=== PATIENT | female | born 1955 | race Caucasian/White ===

== ENCOUNTER → 2016-09-14 | Outpatient (CLI) | payer BC ==
--- NOTE | 2016-09-14 16:00 | MAMMOGRAPHY REPORT ---
BILATERAL DIGITAL SCREENING MAMMOGRAM WITH CAD: 09/14/2016 CLINICAL HISTORY: Routine screening. Patient has no complaints. TECHNIQUE: Bilateral CC and MLO views were obtained. Current study was also evaluated with a Compute r Aided Detection (CAD) system. COMPARISON: Comparison is made to exams dated: 09/13/2015 mammogram, 09/11/2014 mammogram, 07/12/2013 m ammogram, 07/05/2012 mammogram, 07/06/2011 mammogram, and 07/01/2011 mammogram - [facility] enter. BREAST COMPOSITION: There are scattered areas of fibroglandular density in both breasts. FINDINGS: No suspicious mass, architectural distortion or cluster of microcalcifications is seen. IMPRESSION: ACR BI-RADS CATEGORY 1: NEGATIVE There is no mammographic evidence of malignancy. A 1 year screening mammogram is recommended. The pa tient will receive written notification of the results. Approximately 10% of breast cancers are not detected with mammography. A negative mammographic report should not delay biopsy if a clinically suggestive mass is present. Kamini Roberto M.D. ay/:09/14/2016 15:28:26 [employer] Specialist: Susan CORCORAN(R)(M)(BD), [facility] letter sent: Normal 1/2 BI-RADS Code: ACR BI-RADS Category 1: Negative
== END | disposition home or self-care (01) ==
LOC: C.MAMM 15:08
PROVIDERS: ATTEND Obstetrics & Gynecology
DX: Z12.31 Encounter for screening mammogram for malignant neoplasm of breast (principal)

== ENCOUNTER → 2017-02-10 | Outpatient (CLI) | payer BC ==
[2017-02-10 10:12] LABS: BLOOD UREA NITROGEN 22 mg/dl (7-18); BUN/CREATININE RATIO 27.9 (10-20); CARBON DIOXIDE 27 mmol/L (21-32); CHLORIDE 104 mmol/L (98-107); CHOLESTEROL 278 mg/dl (0-200); GLUCOSE 89 mg/dl (70-99); POTASSIUM 4.3 mmol/L (3.5-5.1); SODIUM 137 mmol/L (136-145); TRIGLYCERIDES 68 mg/dl (0-150); VERY LOW DENSITY LIPOPROT CALC 14 mg/dl
[2017-02-10 10:26] LABS: HDL CHOLESTEROL 92 mg/dl; LDL CHOLESTEROL CALCULATED 172 mg/dl
== END | disposition home or self-care (01) ==
LOC: C.LAB 07:03
PROVIDERS: ATTEND Internal Medicine
DX: I10 Essential (primary) hypertension (principal); E78.00 Pure hypercholesterolemia, unspecified; E03.9 Hypothyroidism, unspecified

== ENCOUNTER 2019-04-21 14:15 | Observation (INO) ==
[2019-04-21] MEDS ORDERED: ONDANSETRON INJ 2 MG/ML 2 ML VIAL ONE ×2 (15:33→16:06)
[2019-04-21 15:39] LABS: Basophils # (auto) 0.03 K/uL (0-0.2); Basophils % (auto) 0.4 %; Eosinophils # (auto) 0.07 K/uL (0-0.5); Hematocrit (blood only) 41.9 % (37-47); Hemoglobin 14.5 g/dL (12.0-16.0); Immature Granulocytes # (auto) 0.01 K/uL (0.00-0.02); Immature Granulocytes % (auto) 0.1 %; Lymphocytes % (auto) 36.4 %; Mean Corpuscular Hemoglobin 29.8 pg (25-34); Mean Corpuscular Hgb Conc 34.6 g/dL (32-36); Mean Platelet Volume 9.5 fL (7.4-10.4); Monocytes % (auto) 5.6 %; Neutrophils # (auto) 4.04 K/uL (1.4-6.5); Neutrophils % (auto) 56.5 %; Platelet Count 299 K/uL (130-400); RDW Coefficient of Variation 12.2 % (11.5-14.5); RDW Standard Deviation 38.4 fL (36.4-46.3); Red Blood Count 4.87 M/uL (4.2-5.4); White Blood Count 7.15 K/uL (4.8-10.8)
[2019-04-21 16:03] LABS: Alanine Aminotransferase 26 U/L (12-78); Albumin Level 3.8 gm/dl (3.4-5.0); Aspartate Aminotransferase 18 U/L (15-37); Blood Urea Nitrogen 24 mg/dl (7-18); Calcium 9.1 mg/dl (8.5-10.1); Carbon Dioxide 29 mmol/L (21-32); Chloride 108 mmol/L (98-107); Est GFR (African American) 51.8; Est GFR (Non-African American) 44.7; Glucose 121 mg/dl (70-99); Potassium 3.5 mmol/L (3.5-5.1); Sodium 141 mmol/L (136-145)
[2019-04-21 16:06] LABS: Albumin Globulin Ratio 1.1 (0.9-2); Alkaline Phosphatase 60 U/L (45-117); Bilirubin,Total 0.9 mg/dl (0.2-1); Globulin 3.5 gm/dl (2.5-4.0); Total Protein 7.3 gm/dl (6.4-8.2)
[2019-04-21] MEDS ORDERED: DIAZEPAM 5 MG/ML INJ 10ML VIAL IV STA ×2 (16:10→18:42)
[2019-04-21] MEDS ORDERED: SODIUM CHLORIDE 0.9% 1000ML 500 ML IV ONE (16:10)
--- NOTE | 2019-04-21 16:56 | CT Scan Report ---
CT SCAN OF THE BRAIN WITHOUT IV CONTRAST CLINICAL HISTORY: Dizziness. COMPARISON STUDY: No priors. TECHNIQUE: Unenhanced axial CT scan of the brain is performed from the vertex to the skull base. A d ose lowering technique was utilized adhering to the principles of ALARA. CT DOSE: 638.56 mGycm FINDINGS: Brain parenchyma: The brain parenchyma is normal in appearance. There is no hemorrhage, mass effect, or evidence of acute territorial ischemia by CT criteria. Seaman-white matter differentiation is preser esteban. No extra-axial fluid collection is seen. Ventricles, sulci, cisterns: Normal in configuration. Intracranial vasculature: The visualized intracranial vasculature at the skull base is normal in appe arance. Calvarium: Unremarkable. 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 Sinuses and mastoids: The visualized paranasal sinuses are clear. The mastoid air cells are well pneu matized. Orbits: The bony orbits are grossly intact. IMPRESSION: No acute intracranial abnormality. ACT 112: Negative or not required by law. Electronically signed by: Uday Ram M.D. 04/21/2019 4:55 PM
--- NOTE | 2019-04-21 17:29 | Electrocardiogram Report ---
Test Reason : Blood Pressure : / mmHG Vent. Rate : 076 BPM Atrial Rate : 076 BPM P-R Int : 166 ms QRS Dur : 138 ms QT Int : 420 ms P-R-T Axes : 022 041 032 degrees QTc Int : 472 ms Normal sinus rhythm Right bundle branch block Abnormal ECG No previous ECGs available Confirmed by William Arenas ([id number]) on 04/21/2019 5:29:17 PM Referred By: ED Confirmed By:Jairon Arenas
[2019-04-21] MEDS ORDERED: DiphenhydrAMINE 12.5 MG in SYRINGE 0 ML IV STA (18:42)
[2019-04-21] MEDS ORDERED: METOCLOPRAMIDE HCL INJ 5 MG/ML 2 ML VIAL IV ONE (18:42)
[2019-04-21] MEDS ORDERED: DiphenhydrAMINE HCL 50 MG/ML VIAL ONE (19:00)
--- NOTE | 2019-04-21 20:37 | History & Physical Report ---
Date of Service April 21, 2019 Assessment & Plan (1) Vertigo: Brandy is a 64-year-old female with a past medical history of hyperlipidemia, hypothyroidism, and hypertension who presents with 1 day of acute vertigo and nausea/vomiting which did not improve with diphenhydramine or Zofran. Vertigo Suspect 2/2 labyrinthitis, but given persistent symptoms and new murmur recommend evaluation for central causes No leukocytosis Trace anisocoria, otherwise no focal neurologic deficits CThead negative MRIB pending Meclizine as needed Zofran every 6 hours as needed for nausea Systolic murmur, new to patient She experienced an episode of nipple/left anterior chest pain several hours ago which did not radiate but may have been associated with diaphoresis. EKG shows normal sinus rhythm with right bundle branch block Recommend TTE Troponin series Prerenal azotemia Creatinine increased from baseline less than 1-1.26 with BUN/creatinine ratio of 19 IVFM 80 cc/hr overnight while nausea continues BMP every morning Hypertension Continue lisinopril 2.5 mg p.o. daily Hyperlipidemia Continue Crestor 10 mg every afternoon Hypothyroidism Continue Synthroid 125 mcg p.o. daily Diet: Regular DVT prophylaxis: Enoxaparin 40 mg subcu 2/2 difficulty ambulating 2/2 vertigo CODE STATUS: Full code (2) Nausea: (3) Essential hypertension: (4) Hypercholesterolemia: (5) Hypothyroidism: History of Present Illness Primary Care Provider: Gabriel Rodriguez MD Brandy is a 64-year-old female with a past medical history of hyperlipidemia, hypertension, and hypothyroidism who presented to the emergency department with 24 hours of vertigo. She reports her symptoms started yesterday in the evening when she experienced a sudden episode of dizziness with the room spinning around her. She did not feel syncopal or presyncopal. The episode passed after about 2 minutes and she went to bed. She did not have dizziness symptoms when she woke up the next morning. She came to work at [employer] at around 11:30 in the morning and was doing well until 2 PM when she had a second episode of sudden dizziness. Her blood pressure at the time was 161/100. She also developed nausea and dry heaving intermittently. Her dizziness has persisted relatively nonstop throughout this afternoon and is worse with sitting up or turning her head. She had one episode of chills an hour ago. She endorses thigh ache secondary to a workout, but not any worse than normal. She denies joint pain, diarrhea, constipation, abdominal pain, and new cold-like symptoms. She endorses that she had a cold 7 to 10 days ago with an occasional residual lingering nonproductive cough but that that has mostly resolved and she does not have any current flulike symptoms. She denies night sweats. She has no prior history of the symptoms. She has never had BPPV or vertigo before. She has not noticed any vision change or hearing change. No ear pain. No ear discharge. She was noted on exam to have systolic murmur, she denies previous history of murmur. She endorses that she had a short episode of pain behind her left nipple/chest which she thinks may have been associated with diaphoresis but w hich was not associated with shortness of breath or exercise. She has not had chest pain previously. She has had costochondritis, which she reports felt very different. She is not having any chest pain, diaphoresis, or shortness of breath at time of HPI. 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 Medical history: Hypertension, hypothyroidism, hyperlipidemia Surgical history: 3 total sections. Carpal tunnel release. Left third finger trigger release. Medications: Synthroid, lisinopril, vitamin E. Allergies: She reports she is sensitive to Aleve which raises her blood pressure, no other medication allergies. Social history: She lives at her home in the [place] with her Jose Guadalupe Tijerina. She has no current or former tobacco use. Drinks a glass of wine socially intermittently, no prior problems related to alcohol. Denies recreational drug use. FHx: Mother: Uterine cancer Father: Lung cancer, , heavy smoker Sister: Hypothyroidism CODE STATUS: Full code. Confirmed with patient. If she were unable to make decisions she would want her Jose Guadalupe Tijerina to make decisions for her. Allergies Allergy/AdvReac Type Severity Reaction Status Date / Time naproxen AdvReac Intermediate INCREASES Verified 04/21/19 17:27 BLOOD PRESSURE Home Medications Home Medications Medication Instructions Recorded Confirmed Type omega-3 fatty acids 1,000 mg 1,000 mg PO DAILY 03/10/19 04/21/19 History capsule levothyroxine 125 mcg PO DAILY 04/21/19 04/21/19 History lisinopril 2.5 mg PO DAILY 04/21/19 04/21/19 History rosuvastatin [Crestor] 10 mg PO QPM 04/21/19 04/21/19 History Past Med/Surg History Medical History Essential hypertension (Acute) Health care maintenance Hypercholesterolemia (Acute) Hypothyroidism (Acute) Surgical History History of carpal tunnel release History of section History of eye surgery History of tonsillectomy History of tooth extraction History of tubal ligation Family History Father Lung cancer Myocardial infarction Mother Uterine cancer Other Allergic rhinitis Asthma Social History Preferred Language: Kinyarwanda Communication Ability: Effective Visual Impairment: No Limitations Hearing Ability: Normal Jacket Preparer Required: No Beliefs That Will Affect Care: None marital status: Current Living Situation: Spouse current occupational status: employed Other Information That Helps Us Care for You: No Feels Safe at Home: Yes Safety Concerns: Feels Safe At This Time Smoking Status: Never smoker Hx Alcohol Use: Yes Alcohol Intake Frequency Comment: social Hx Substance Use: No Childhood Exposure to Second-Hand Smoke: Yes Dental Care, Regularly: Yes Physical Activity Frequency: 5-6 Times per Week Physical Activity Frequency Comment: regularly Seatbelt Use: always Sunscreen Use: Yes Review of Systems Review of Systems: Constitutional: Denies fever, malaise, weight change. Endorses 1 episode of chills Eyes: Denies double vision, vision change, eye pain ENT: Denies ear pain, sore throat, sinus pain Cardiovascular: Endorses L nipple/?chest pain/ denies chest pressure, palpitations, extremity swelling Respiratory: Denies shortness of breath, sputum production, difficulty breathing. Lingering cough as noted in HPI. Gastrointestinal: Denies abdominal pain, vomiting, constipation, diarrhea. Endorses nausea, dry heaving. Genitourinary: Denies pain with urination, urinary urgency, urinary frequency Musculoskeletal: Denies weakness, joint aches/pain. Endorses muscle aches from exercise, no new or unusual muscle aches or myalgias. Integumentary:Denies rash, lesions, bruising Neurological: Denies headache, numbness, tingling, focal weakness Physical Exam Physical Exam: General: A&Ox3. Appears fatigued. NAD. Cooperative. HEENT: Atraumatic, normocephalic. No nasolabial fold flattening or increased tone/asymmetry. Exterior nasal anatomy normal, atraumatic. External ear anatomy normal, atraumatic bilaterally. TM without perforation, exudate, effusion bilaterally. No mastoid tenderness bilaterally. No anterior/posterior cervical adenopathy or clavicular adenopathy. Pulm: CTAB A&P. -wheezes, -rales, -rhonchi. Symmetrical chest rise. No increase work of breathing. No respiratory distress. Cardiac: v/vi systolic murmur best appreciated at right upper sternal border with radiation to the right carotid. No rubs, gallops. No carotid bruits. Radial pulses intact and symmetrical. Abdominal: Nontender, nondistended, soft. BS present. CN II: Visual bentley are full to confrontation. Left pupil 1 mm larger than the right at rest, pupils respond equally to light and accommodation. Visual bentley intact without deficits. Visual acuity grossly intact. CN III, IV, : At primary gaze, there is no eye deviation. Extraocular movements intact without vertical or horizontal nystagmus. CN V: Facial sensation is intact to soft touch in all 3 divisions bilaterally. CN VII: No facial asymmetry, full strength to eyebrow raise, smile, eye close, and cheek puff. CN VII: Hearing is grossly intact. CN IX, X: Palate elevates symmetrically. Phonation is normal without dysarthria. CN XI: Head turning and shoulder shrug are intact CN XII: Tongue protrudes midline. Reflexes: Patellar, Achilles, Brachial DTR 2+ Bilaterally Sensory: Light touch, pinprick intact in fingertips and toes without deficit or asymmetry. 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 There is no dysmetria on [id number] and [id number]. Results & Data Vital Signs (Past 12 Hours) Vital Signs Temp Pulse Pulse Resp BP BP Pulse Ox 04/21/19 19:00 84 20 132/82 97 04/21/19 17:54 70 20 141/86 H 94 04/21/19 16:02 61 16 149/62 H 91 04/21/19 15:38 67 14 172/90 H 98 04/21/19 14:18 36.7 C 88 20 164/89 H 96 Supervising Physician Co-Signing Physician Notes Patient was seen and examined by me personally. I reviewed the chart, the orders and discussed the case in detail with Dr. Philippe Nevarez MD . I read this H&P and agree with its contents to entirety. Resident Activity Tracking Resident Involvement: Resident Care Provided Care Provided: Adult Hospital Medicine
[2019-04-21 21:41] LABS: Appearance Urine Clear (Clear); Bilirubin Urine Negative (Negative); Blood Urine Negative (Negative); Color Urine Yellow; Glucose Urine UA Negative (Negative); Ketones Urine Trace (Negative); Leukocyte Esterase Urine Negative (Negative); Nitrite Urine Negative (Negative); Protein Urine Negative (Negative); Urobilinogen Urine Negative (Negative)
[2019-04-21] MEDS ORDERED: ONDANSETRON INJ 2 MG/ML 2 ML VIAL IV PRN (22:52)
[2019-04-21] MEDS ORDERED: ENOXAPARIN INJ 40 MG/0.4 ML SYR SQ SCH (23:15)
[2019-04-21] MEDS: MECLIZINE HCL 25 MG TAB PO PRN (23:39)
[2019-04-21] MEDS: SODIUM CHLORIDE 0.9% 1000ML 1,000 ML IV SCH (23:40)
--- NOTE | 2019-04-22 00:35 | Emergency Department Note ---
Entered by Gilda Ramirez acting as a scribe for Kevin Larson MD ED Provider Note CHIEF COMPLAINT: Dizziness HISTORY OF PRESENT ILLNESS: The patient is a 64 year old female who presents to the Emergency Room with complaints of dizziness. The patient states that 1 day ago around 7:30PM she began to experience an episode of dizziness while she was sitting down which she describes as "room spinning". This episode lasted approximately 2-3 minutes and she reports that she experienced diaphoresis at this time and then the dizziness diminished on its own. The patient explains that she felt fine when she woke up today, however her dizziness returned during work earlier today and was now associated with nausea, dry heaves, and pressure in her bilateral temples. Additionally the patient complains of mild aching left sided chest discomfort which began in the ED today. She admits that she currently feels slightly dizzy with nausea and dry heaves. The patient states that her nausea and dry heaves does not exacerbate her chest pain or dizziness. Her dizziness is exacerbated when she sits up and her nausea is exacerbated when she moves her eyes. The patient also includes that she has a mild cough from a recent cold that began 10 days ago. Of note, she does not have a personal history of vertigo nor has she experienced dizziness like this before. She also reports that she is not normally sensitive to motion sickness. Additionally, she does not have a family history of vertigo or stroke. Pt denies LOC, fevers, chills, neck pain, breathing difficulties, abdominal pain, back pain, melena, hematochezia, urinary symptoms, numbness, tingling, weakness, lymphadenopathy, rash, tinnitus, loss of hearing, or other complaints. REVIEW OF SYSTEMS: See HPI for pertinent positives and negatives. A total of ten systems were reviewed and were otherwise negative. PMHx/PSHx: Hypothyroidism, essential hypertension, hypercholesterolemia, non-smoker, paternal ID SOCIAL HISTORY: Patient lives at home. PHYSICAL EXAM: GENERAL: Awake, alert, uncomfortable-appearing, in no distress HENT: Normocephalic, atraumatic. Oropharynx unremarkable. TMs normal. EYES: PERRL. Normal conjunctiva. Sclera non-icteric. Lateral nystagmus to the right. NECK: Inspection normal. Non-tender. Supple. No nuchal rigidity. FROM. No masses. RESPIRATORY: Clear to auscultation. No wheezes. No rales. Normal respiratory effort. CARDIAC: Normal rate. Normal rhythm. No murmurs. No rubs. Extremities warm and well perfused. Pulses equal. No JVD. GI: Soft, non-distended. No tenderness to palpation. No rebound or guarding. No masses. RECTAL: Deferred. MUSCULOSKELETAL: Atraumatic. Chest examination reveals no tenderness. The back is symmetrical on inspection without obvious abnormality. There is no CVA tenderness to palpation. No joint edema. LOWER EXTREMITIES: Calves are equal size bilaterally and non-tender. No edema. No discoloration. NEURO: Normal sensorium. No sensory or motor deficits noted. Cranial nerves II- XII intact. No drift. Normal YISEL. SKIN: No rash or jaundice noted. EMERGENCY DEPARTMENT COURSE: 1604: Past medical records reviewed. The patient was evaluated in room D03B, and a complete history and physical examination were performed. 1840: I checked on the patient and she states that she is feeling improved after the first round of medications. However, she got up to use the restroom and became severely nauseous and dizzy again so I have ordered additional medications for her. 1939: I re-checked the patient and she states that she is feeling improved. I helped her get out of bed to ambulate and she began to experience dizziness again and could not stand on her own. I decided to call Dr. Keller who will further evaluate the patient. I discussed plan to admit with the patient. The patient verbally expressed understanding and agreement of the treatment plan. The patient will be evaluated for further treatment. MEDICAL DECISION MAKING: Triage Nursing notes reviewed and agree them. Additional history obtained from family. The patient's history was concerning for dizziness. Differential diagnosis: Etiologies such as benign positional vertigo, tumor, infection, hypoglycemia, electrolyte abnormalities, cardiac sources, intracerebral event, toxicologic, neurologic, as well as others were entertained. Physical examination: As above. No pathologic nystagmus. Negative hints exam. ER treatment provided: IV hydration over one hour Valium 2.5 mg x 2 IV Zofran x2 IV Reglan IV Benadryl On reassessment the patient felt better however as soon as she tried to get up and move around she was significantly dizzy and off-balance. Stand or walk.. Diagnostics interpretation by me: ECG: Normal sinus rhythm without ischemic change or evidence of dysrhythmia x2. Laboratory studies: The labs revealed a normal CBC and chemistry panel. Troponin negative. Imaging studies: CT imaging of the head was negative for acute process. Patient has significant dizziness and vertigo symptoms. She has a nonfocal neurologic examination. CT imaging did not reveal any acute process. Given the fact that she cannot stand or walk she will need further work-up and management in the hospital. Patient and family were in agreement. Consultation: A consultation was placed with the hospitalist. The case was discussed and diagnostics were reviewed. The patient was evaluated in the ER for further treatment. IMPRESSION: Intractable dizziness, nausea, left sided chest pain PLAN: Admitted; being evaluated by hospitalist The scribe's documentation has been prepared under my direction and personally reviewed by me in its entirety. I confirm that the note above accurately reflects all work, treatment, procedures, and medical decision making performed by me. Impression & Plan Dizziness, Nausea, Left-sided chest pain Past Med/Surg History Medical History Essential hypertension (Acute) Health care maintenance Hypercholesterolemia (Acute) Hypothyroidism (Acute) Surgical History History of carpal tunnel release History of section History of eye surgery History of tonsillectomy History of tooth extraction History of tubal ligation Family History Father Lung cancer Myocardial infarction Mother Uterine cancer Other Allergic rhinitis Asthma Social History Preferred Language: Irish Communication Ability: Effective Visual Impairment: No Limitations Hearing Ability: Normal Brass Molder Required: No Beliefs That Will Affect Care: None marital status: Current Living Situation: Spouse current occupational status: employed Other Information That Helps Us Care for You: No Feels Safe at Home: Yes Safety Concerns: Feels Safe At This Time Smoking Status: Never smoker Hx Alcohol Use: Yes Alcohol Intake Frequency Comment: social Hx Substance Use: No Childhood Exposure to Second-Hand Smoke: Yes Dental Care, Regularly: Yes Physical Activity Frequency: 5-6 Times per Week Physical Activity Frequency Comment: regularly Seatbelt Use: always Sunscreen Use: Yes Results & Data Vital Signs Vital Signs - 24 hr 04/21/19 14:18 04/21/19 15:38 04/21/19 16:02 Temperature 36.7 C Temperature Source Oral Pulse Rate 88 Pulse Rate [Left Finger] 67 61 Pulse Rate from SpO2 Sensor Pulse Rhythm [Left Finger] Respiratory Rate 20 14 16 Respiratory Effort / Characteristics Respiratory Depth Respiratory Pattern Blood Pressure 164/89 H Blood Pressure [Right Arm] 172/90 H 149/62 H Blood Pressure Mean 114 Blood Pressure Mean [Right Arm] 117 91 Pulse Oximetry 96 98 91 Oxygen Delivery Method Room Air Sepsis Recent Fever Within 48 Hours No Sepsis New/Unexplained Change in Mental Status No Sepsis Action Taken by Nursing No Action Required 04/21/19 17:54 04/21/19 19:00 04/21/19 19:09 Temperature Temperature Source Pulse Rate Pulse Rate [Left Finger] 70 84 Pulse Rate from SpO2 Sensor Pulse Rhythm [Left Finger] Regular Respiratory Rate 20 20 Respiratory Effort / Characteristics Non-Labored Respiratory Depth Normal Respiratory Pattern Regular Blood Pressure 132/82 Blood Pressure [Right Arm] 141/86 H 132/82 Blood Pressure Mean 100 Blood Pressure Mean [Right Arm] 104 98 Pulse Oximetry 94 97 Oxygen Delivery Method Room Air Sepsis Recent Fever Within 48 Hours Sepsis New/Unexplained Change in Mental Status Sepsis Action Taken by Nursing 04/21/19 20:28 04/21/19 20:30 04/21/19 21:15 Temperature Temperature Source Pulse Rate Pulse Rate [Left Finger] 87 Pulse Rate from SpO2 Sensor 86 83 84 Pulse Rhythm [Left Finger] Respiratory Rate 19 17 19 Respiratory Effort / Characteristics Non-Labored Respiratory Depth Normal Respiratory Pattern Regular Blood Pressure 131/79 129/81 126/71 Blood Pressure [Right Arm] 129/81 Blood Pressure Mean 95 90 91 Blood Pressure Mean [Right Arm] 97 Pulse Oximetry 95 91 93 Oxygen Delivery Method Room Air Sepsis Recent Fever Within 48 Hours Sepsis New/Unexplained Change in Mental Status Sepsis Action Taken by Nursing 04/21/19 21:16 04/21/19 21:29 04/21/19 21:30 Temperature Temperature Source Pulse Rate 79 79 Pulse Rate [Left Finger] 85 Pulse Rate from SpO2 Sensor 80 78 Pulse Rhythm [Left Finger] Regular Respiratory Rate 15 12 21 Respiratory Effort / Characteristics Non-Labored Respiratory Depth Normal Respiratory Pattern Regular Blood Pressure 126/73 132/64 Blood Pressure [Right Arm] 126/71 Blood Pressure Mean 91 88 Blood Pressure Mean [Right Arm] 89 Pulse Oximetry 94 93 93 Oxygen Delivery Method Room Air Sepsis Recent Fever Within 48 Hours Sepsis New/Unexplained Change in Mental Status Sepsis Action Taken by [facility] Medications Current Medication List: was personally reviewed by me Laboratory Data Attestation: I reviewed the patient's lab results. Result diagrams: 04/21/19 15:30 04/21/19 15:30 Lab Results 04/21/19 04/21/19 04/21/19 Range/Units 15:30 15:30 15:30 WBC 7.15 (4.8-10.8) K/uL RBC 4.87 (4.2-5.4) M/uL Hgb 14.5 (12.0-16.0) g/dL Hct 41.9 (37-47) % MCV 86.0 (80-100) fL MCH 29.8 (25-34) pg MCHC 34.6 (32-36) g/dL RDW Std Deviation 38.4 (36.4-46.3) fL RDW Coeff of Kari 12.2 (11.5-14.5) % Plt Count 299 (130-400) K/uL MPV 9.5 (7.4-10.4) fL Immature Gran % (Auto) 0.1 % Neut % (Auto) 56.5 % Lymph % (Auto) 36.4 % [place] % (Auto) 5.6 % Eos % (Auto) 1.0 % Baso % (Auto) 0.4 % Immature Gran # (Auto) 0.01 (0.00-0.02) K/uL Neut # (Auto) 4.04 (1.4-6.5) K/uL Lymph # (Auto) 2.60 (1.2-3.4) K/uL [place] # (Auto) 0.40 (0.11-0.59) K/uL Eos # (Auto) 0.07 (0-0.5) K/uL Baso # (Auto) 0.03 (0-0.2) K/uL Sodium 141 (136-145) mmol/L Potassium 3.5 (3.5-5.1) mmol/L Chloride 108 H (98-107) mmol/L Carbon Dioxide 29 (21-32) mmol/L Anion Gap 4.0 (3-11) BUN 24 H (7-18) mg/dl Creatinine 1.26 H (0.6-1.2) mg/dl Est Cr Clr Drug Dosing Not Reportable Est GFR ( Amer) 51.8 Est GFR (Non-Af Amer) 44.7 BUN/Creatinine Ratio 19.0 (10-20) Glucose 121 H (70-99) mg/dl Calcium 9.1 (8.5-10.1) mg/dl Total Bilirubin 0.9 (0.2-1) mg/dl AST 18 (15-37) U/L ALT 26 (12-78) U/L Alkaline Phosphatase 60 (45-117) U/L Troponin I < 0.015 (0-0.045) ng/ml Total Protein 7.3 (6.4-8.2) gm/dl Albumin 3.8 (3.4-5.0) gm/dl Globulin 3.5 (2.5-4.0) gm/dl Albumin/Globulin Ratio 1.1 (0.9-2) Urine Color Urine Appearance (Clear) Urine pH (4.5-7.5) Ur Specific Richey (1.000-1.030) Urine Protein (Negative) Urine Glucose (UA) (Negative) Urine Ketones (Negative) Urine Blood (Negative) Urine Nitrite (Negative) Urine Bilirubin (Negative) Urine Urobilinogen (Negative) Ur Leukocyte Esterase (Negative) 04/21/19 Range/Units 21:25 WBC (4.8-10.8) K/uL RBC (4.2-5.4) M/uL Hgb (12.0-16.0) g/dL Hct (37-47) % MCV (80-100) fL MCH (25-34) pg MCHC (32-36) g/dL RDW Std Deviation (36.4-46.3) fL RDW Coeff of Kari (11.5-14.5) % Plt Count (130-400) K/uL MPV (7.4-10.4) fL Immature Gran % (Auto) % Neut % (Auto) % Lymph % (Auto) % [place] % (Auto) % Eos % (Auto) % Baso % (Auto) % Immature Gran # (Auto) (0.00-0.02) K/uL Neut # (Auto) (1.4-6.5) K/uL Lymph # (Auto) (1.2-3.4) K/uL [place] # (Auto) (0.11-0.59) K/uL Eos # (Auto) (0-0.5) K/uL Baso # (Auto) (0-0.2) K/uL Sodium (136-145) mmol/L Potassium (3.5-5.1) mmol/L Chloride (98-107) mmol/L Carbon Dioxide (21-32) mmol/L Anion Gap (3-11) BUN (7-18) mg/dl Creatinine (0.6-1.2) mg/dl Est Cr Clr Drug Dosing Est GFR ( Amer) Est GFR (Non-Af Amer) BUN/Creatinine Ratio (10-20) Glucose (70-99) mg/dl Calcium (8.5-10.1) mg/dl Total Bilirubin (0.2-1) mg/dl AST (15-37) U/L ALT (12-78) U/L Alkaline Phosphatase (45-117) U/L Troponin I (0-0.045) ng/ml Total Protein (6.4-8.2) gm/dl Albumin (3.4-5.0) gm/dl Globulin (2.5-4.0) gm/dl Albumin/Globulin Ratio (0.9-2) Urine Color Yellow Urine Appearance Clear (Clear) Urine pH 6.0 (4.5-7.5) Ur Specific Richey 1.020 (1.000-1.030) Urine Protein Negative (Negative) Urine Glucose (UA) Negative (Negative) Urine Ketones Trace H (Negative) Urine Blood Negative (Negative) Urine Nitrite Negative (Negative) Urine Bilirubin Negative (Negative) Urine Urobilinogen Negative (Negative) Ur Leukocyte Esterase Negative (Negative) Administered Medications Enoxaparin Sodium (Lovenox) 40 mg SQ DAILY@2100 [facility] Stop: 05/21/19 23:14 Last Admin: 04/21/19 23:40 Dose: Not Given Documented by: [id number] Sodium Chloride (Nss 1000ml) 1,000 mls @ 80 mls/hr IV .[id number] [facility] Stop: 05/21/19 22:51 Last Admin: 04/21/19 23:40 Dose: 80 mls/hr Documented by: [id number] Meclizine HCl (Antivert) 25 mg PO Q8H PRN PRN Reason: Vertigo Stop: 05/21/19 22:51 Last Admin: 04/21/19 23:39 Dose: 25 mg Documented by: [id number] Discontinued Medications Diazepam (Valium) 2.5 mg IV NOW STA Stop: 04/21/19 16:11 Last Admin: 04/21/19 16:42 Dose: 2.5 mg Documented by: [id number] Diazepam (Valium) 2.5 mg IV NOW STA Stop: 04/21/19 18:43 Last Admin: 04/21/19 19:07 Dose: 2.5 mg Documented by: [id number] Diphenhydramine HCl (Benadryl) Confirm Administered Dose 50 mg .ROUTE .STK-MED ONE Stop: 04/21/19 19:01 Last Admin: 04/21/19 19:07 Dose: Not Given Documented by: [id number] Sodium Chloride (Nss 1000ml) 500 mls @ 999 mls/hr IV .Q31M ONE Stop: 04/21/19 16:40 Last Infusion: 04/21/19 17:54 Dose: 0 mls/hr Documented by: [id number] Admin: 04/21/19 16:42 Dose: 999 mls/hr Documented by: [id number] Diphenhydramine HCl 12.5 mg/ (Syringe) 0.25 mls @ 1 mls/hr IV NOW STA Stop: 04/21/19 18:56 Last Admin: 04/21/19 19:07 Dose: 1 mls/hr Documented by: [id number] Metoclopramide HCl (Reglan) 5 mg IV ONE ONE Stop: 04/21/19 18:43 Last Admin: 04/21/19 19:07 Dose: 5 mg Documented by: [id number] Ondansetron HCl (Zofran) Confirm Administered Dose 4 mg .ROUTE .STK-MED ONE Stop: 04/21/19 15:34 Last Admin: 04/21/19 15:37 Dose: 4 mg Documented by: [id number] Ondansetron HCl (Zofran) Confirm Administered Dose 4 mg .ROUTE .STK-MED ONE Stop: 04/21/19 16:07 Last Admin: 04/21/19 16:26 Dose: 4 mg Documented by: [id number] Imaging Data Radiologist's Impression: Radiology results as stated below per my review and the radiologist's interpretation: CT SCAN OF THE BRAIN WITHOUT IV CONTRAST CLINICAL HISTORY: Dizziness. COMPARISON STUDY: No priors. TECHNIQUE: Unenhanced axial CT scan of the brain is performed from the vertex to the skull base. A dose lowering technique was utilized adhering to the principles of ALARA. CT DOSE: 638.56 mGycm FINDINGS: Brain parenchyma: The brain parenchyma is normal in appearance. There is no hemorrhage, mass effect, or evidence of acute territorial ischemia by CT criteria. Seaman-white matter differentiation is preserved. No extra-axial fluid collection is seen. Ventricles, sulci, cisterns: Normal in configuration. Intracranial vasculature: The visualized intracranial vasculature at the skull base is normal in appearance. Calvarium: Unremarkable. 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 Sinuses and mastoids: The visualized paranasal sinuses are clear. The mastoid air cells are well pneumatized. Orbits: The bony orbits are grossly intact. IMPRESSION: No acute intracranial abnormality. ACT 112: Negative or not required by law. Electronically signed by: Uday Ram M.D. 04/21/2019 4:55 PM ECG Data Indication: + other (dizziness/HTN) Rate (beats per minute): 76 Rhythm: normal sinus ECG Intervals/blocks: + Right Bundle branch block ECG Charlotte: + Normal ECG ST segments: no ST depression and no ST elevation ECG Findings: no PVCs Additional Comments: REPEAT EKG performed in the ED today at 1622: * Normal sinus rhythm a 61 bpm * RBBB * Non-specific ST segments * No PVCs * Normal axis Blood Pressure Blood Pressure Findings: Elevated blood pressure Blood Pressure Disposition: further management by hospitalist Discharge Plan Visit Data *Final* Discharge Date/Time: 04/21/19 22:41 Chief Complaint: Hypertension Stated Complaint: DIZZINESS,BP 161/101 ED Provider: Kevin Larson Discharge Problem: Dizziness, Nausea, Left-sided chest pain Patient Disposition: Admitted As Inpatient Discharge Instructions Interventions: ED Discharge Assessment Last Done: 04/21/19 22:41 The scribe's documentation has been prepared under my direction and personally reviewed by me in its entirety. I confirm that the note above accurately reflects all work, treatment, procedures, and medical decision making performed by me.
[2019-04-22] MEDS ORDERED: PROMETHAZINE HCL 25 MG TAB PO PRN (01:43)
--- NOTE | 2019-04-22 04:21 | Billing Data ---
Date of Service April 21, 2019 Coding Level of Care Code 53543 OBS Care - Level 2
[2019-04-22] MEDS ORDERED: LEVOTHYROXINE SODIUM 125 MCG TABLET PO SCH (06:30)
[2019-04-22 06:58] LABS: BUN Creatinine Ratio 20.8 (10-20); Blood Urea Nitrogen 17 mg/dl (7-18); Calcium 8.5 mg/dl (8.5-10.1); Carbon Dioxide 29 mmol/L (21-32); Chloride 112 mmol/L (98-107); Creatinine Clr Calc Pharmacy 62.5 ml/min; Est GFR (African American) 84.5; Est GFR (Non-African American) 72.9; Glucose 90 mg/dl (70-99); Potassium 3.7 mmol/L (3.5-5.1); Sodium 143 mmol/L (136-145)
[2019-04-22 07:11] LABS: Troponin I < 0.015 ng/ml (0-0.045)
[2019-04-22] MEDS: MECLIZINE HCL 25 MG TAB PO PRN (08:53)
[2019-04-22] MEDS ORDERED: OMEGA-3 (PURIFIED FISH OIL) 1 GM CAP PO SCH (09:00)
--- NOTE | 2019-04-22 10:55 | Magnetic Resonance Report ---
Brain MRI WITHOUT CONTRAST HISTORY: intractable vertigo, mild anisocoria TECHNIQUE: Multiplanar multisequence MRI of the brain was performed without the use of contrast. COMPARISON STUDY: Head CT 04/21/2019. FINDINGS: There are no areas of restricted diffusion to suggest acute infarction. The midline structu res are intact. The paranasal sinuses are clear. The mastoid air cells are clear. The ventricles and sulci are within normal limits for age. There is no mass, hematoma, midline shift. The major vascular flow-voids at the skull base are well maintained. A small focus of T2 hyperintensity within the swapna ventricular white matter of the left frontal lobe. This is nonspecific but favors a focus of microvas cular ischemic change. This is of doubtful clinical significance. 3 cm right frontal scalp lipoma is again noted. IMPRESSION: No acute intracranial abnormality. ACT 112: Negative or not required by law. Electronically signed by: Juan Walton M.D. 04/22/2019 10:54 AM
--- NOTE | 2019-04-22 11:41 | XCELERA ---
[id number] \\[email or web address]\[id number]
[2019-04-22] MEDS: SODIUM CHLORIDE 0.9% 1000ML 1,000 ML IV SCH (13:33)
--- NOTE | 2019-04-22 15:15 | Discharge Summary ---
Date of Service April 22, 2019 Admission HPI Per Admitting Provider Jerrica is a 64-year-old female with a past medical history of hyperlipidemia, hypertension, and hypothyroidism who presented to the emergency department with 24 hours of vertigo. She reports her symptoms started yesterday in the evening when she experienced a sudden episode of dizziness with the room spinning around her. She did not feel syncopal or presyncopal. The episode passed after about 2 minutes and she went to bed. She did not have dizziness symptoms when she woke up the next morning. She came to work at [employer] at around 11:30 in the morning and was doing well until 2 PM when she had a second episode of sudden dizziness. Her blood pressure at the time was 161/100. She also developed nausea and dry heaving intermittently. Her dizziness has persisted relatively nonstop throughout this afternoon and is worse with sitting up or turning her head. She had one episode of chills an hour ago. She endorses thigh ache secondary to a workout, but not any worse than normal. She denies joint pain, diarrhea, constipation, abdominal pain, and new cold-like symptoms. She endorses that she had a cold 7 to 10 days ago with an occasional residual lingering nonproductive cough but that that has mostly resolved and she does not have any current flulike symptoms. She denies night sweats. She has no prior history of the symptoms. She has never had BPPV or vertigo before. She has not noticed any vision change or hearing change. No ear pain. No ear discharge. She was noted on exam to have systolic murmur, she denies previous history of murmur. She endorses that she had a short episode of pain behind her left nipple/chest which she thinks may have been associated with diaphoresis but which was not associated with shortness of breath or exercise. She has not had chest pain previously. She has had costochondritis, which she reports felt very different. She is not having any chest pain, diaphoresis, or shortness of breath at time of HPI. 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 Medical history: Hypertension, hypothyroidism, hyperlipidemia Surgical history: 3 total sections. Carpal tunnel release. Left third finger trigger release. Medications: Synthroid, lisinopril, vitamin E. Allergies: She reports she is sensitive to Aleve which raises her blood pressure, no other medication allergies. Social history: She lives at her home in the [place] with her Jose Guadalupe Tijerina. She has no current or former tobacco use. Drinks a glass of wine socially intermittently, no prior problems related to alcohol. Denies recreational drug use. FHx: Mother: Uterine cancer Father: Lung cancer, , heavy smoker Sister: Hypothyroidism CODE STATUS: Full code. Confirmed with patient. If she were unable to make decisions she would want her Jose Guadalupe Tijerina to make decisions for her. Admission Exam Per Admitting Provider Physical Exam Physical Exam: General: A&Ox3. Appears fatigued. NAD. Cooperative. HEENT: Atraumatic, normocephalic. No nasolabial fold flattening or increased tone/asymmetry. Exterior nasal anatomy normal, atraumatic. External ear anatomy normal, atraumatic bilaterally. TM without perforation, exudate, effusion bilaterally. No mastoid tenderness bilaterally. No anterior/posterior cervical adenopathy or clavicular adenopathy. Pulm: CTAB A&P. -wheezes, -rales, -rhonchi. Symmetrical chest rise. No increase work of breathing. No respiratory distress. Cardiac: v/vi systolic murmur best appreciated at right upper sternal border with radiation to the right carotid. No rubs, gallops. No carotid bruits. Radial pulses intact and symmetrical. Abdominal: Nontender, nondistended, soft. BS present. CN II: Visual bentley are full to confrontation. Left pupil 1 mm larger than the right at rest, pupils respond equally to light and accommodation. Visual bentley intact without deficits. Visual acuity grossly intact. CN III, IV, : At primary gaze, there is no eye deviation. Extraocular movements intact without vertical or horizontal nystagmus. CN V: Facial sensation is intact to soft touch in all 3 divisions bilaterally. CN VII: No facial asymmetry, full strength to eyebrow raise, smile, eye close, and cheek puff. CN VII: Hearing is grossly intact. CN IX, X: Palate elevates symmetrically. Phonation is normal without dysarthria. CN XI: Head turning and shoulder shrug are intact CN XII: Tongue protrudes midline. Reflexes: Patellar, Achilles, Brachial DTR 2+ Bilaterally Sensory: Light touch, pinprick intact in fingertips and toes without deficit or asymmetry. Strength: RUE: Shoulder flexion/extension/internal rotation/external rotation, elbow flexion/extension, finger flexion/extension, verification specialist strength, interosseous 5/5 LUE: Shoulder flexion/extension/internal rotation/external rotation, elbow flexion/extension, finger flexion/extension, verification specialist strength, interosseous 5/5 RLE: Hip flexion, knee flexion/extension, ankle plantar flexion/dorsiflexion 5/5 LLE: Hip flexion, knee flexion/extension, ankle plantar flexion/dorsiflexion 5/5 Coordination: Rapid alternating movements and fine finger movements are intact. There is no dysmetria on [id number] and [id number]. Principal Diagnosis vertigo Discharge Exam Constitutional WD/WN, vitals as above Eyes PERRL, conjunctivae normal, anicteric sclerae ENMT external ear and nose normal, oropharynx normal Neck trachea midline, no thyromegaly Respiratory normal respiratory effort, lungs clear to auscultation Cardiovascular RRR, no murmur, no edema Gastrointestinal (Abdomen) normal bowel sounds, soft, nontender, no hepatosplenomegaly Musculoskeletal no cyanosis or clubbing, extremities motor strength 5/5 Psychiatric A+Ox3, euthymic affect Discharge Data Allergies Allergy/AdvReac Type Severity Reaction Status Date / Time naproxen AdvReac Intermediate INCREASES Verified 04/21/19 17:27 BLOOD PRESSURE Consultations 04/21/19 22:52 ED Decision to Admit Stat Ordered Studies Echocardiogram--normal left ventricular size and systolic function. EF 65 to 70%, no regional wall motion abnormalities, no left ventricular hypertrophy, no significant diastolic dysfunction, no significant valvular abnormalities, normal estimated right ventricular systolic pressure, no prior study available for comparison 04/21/19 16:04 CT head/brain wo con Stat [facility], [place] [phone] cc: ~ CT SCAN OF THE BRAIN WITHOUT IV CONTRAST CLINICAL HISTORY: Dizziness. COMPARISON STUDY: No priors. TECHNIQUE: Unenhanced axial CT scan of the brain is performed from the vertex to the skull base. A dose lowering technique was utilized adhering to the principles of ALARA. CT DOSE: 638.56 mGycm FINDINGS: Brain parenchyma: The brain parenchyma is normal in appearance. There is no hemorrhage, mass effect, or evidence of acute territorial ischemia by CT criteria. Seaman-white matter differentiation is preserved. No extra-axial fluid collection is seen. Ventricles, sulci, cisterns: Normal in configuration. Intracranial vasculature: The visualized intracranial vasculature at the skull base is normal in appearance. Calvarium: Unremarkable. 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 Sinuses and mastoids: The visualized paranasal sinuses are clear. The mastoid air cells are well pneumatized. Orbits: The bony orbits are grossly intact. IMPRESSION: No acute intracranial abnormality. ACT 112: Negative or not required by law. Electronically signed by: Uday Ram M.D. 04/21/2019 4:55 PM Dictated: 04/21/[id number] Transcribed: 04/21/19165104/22/19 22:52 MR brain wo JERRICA Pennington 64 F 1955 cc: ~ Brain MRI WITHOUT CONTRAST HISTORY: intractable vertigo, mild anisocoria TECHNIQUE: Multiplanar multisequence MRI of the brain was performed without the use of contrast. COMPARISON STUDY: Head CT 04/21/2019. FINDINGS: There are no areas of restricted diffusion to suggest acute infarction. The midline structures are intact. The paranasal sinuses are clear. The mastoid air cells are clear. The ventricles and sulci are within normal limits for age. There is no mass, hematoma, midline shift. The major vascular flow-voids at the skull base are well maintained. A small focus of T2 hyperintensity within the periventricular white matter of the left frontal lobe. This is nonspecific but favors a focus of microvascular ischemic change. This is of doubtful clinical significance. 3 cm right frontal scalp lipoma is again noted. IMPRESSION: No acute intracranial abnormality. ACT 112: Negative or not required by law. Electronically signed by: Juan Walton M.D. 04/22/2019 10:54 AM Dictated: 04/22/19 1050 Transcribed: 04/22/19 105 Hospital Course (1) Vertigo: Jerrica is a 64-year-old female with a past medical history of hyperlipidemia, hypothyroidism, and hypertension who presents with 1 day of acute vertigo and nausea/vomiting which did not improve with diphenhydramine or Zofran. Vertigo, benign positional vertigo versus labyrinthitis In the setting of recent cold symptoms. Appears to be a positional component. Continue meclizine and Zofran as needed MRI and CT were normal, see report above Advised to follow-up with PCP in the next 3-5 business days, may need vestibular therapy Chest pain, 2 out of 6 systolic murmur Evaluated for acute coronary syndrome and potential aortic stenosis Echocardiogram was normal, see report above ECG was normal sinus rhythm, right bundle branch block Troponins negative Prerenal azotemia, initial creatinine was 1.26, BUN was 24 Resolved with IV hydration (2) Nausea: (3) Essential hypertension: (4) Hypercholesterolemia: (5) Hypothyroidism: Total Time Total Time Spent Total Time Spent (In Minutes): Greater than 30 minutes Total Time Includes: Examination of the Patient, Discharge Planning, Medication Reconciliation and Communication With Other Providers Discharge Plan Discharge Items Patient Disposition: Home - Self-Care Reason For Visit: VERTIGO Discharge Diagnosis: Vertigo Activity: Per Instructions section Non-emergency contact: Primary Care Provider Call non-emergency contact if: you have any medication questions and your symptoms worsen Follow-up/Referrals: ProGabriel MD [Primary Care Provider] - Diet: Regular Addtl Attending Provider Instructions: You received an Echocardiogram to assess your heart and a CT and MRI to evaluate assess your brain. These test came back normal. Please follow up with your PCP early in the next 3-5 business days to assess your vertigo symptoms. We are sending you home with a medication to take for you symptoms. The medication is called Meclizine and it can be taken upwards to 4 times daily. The medication can make you drowsy, so please take caution. You should avoid driving with the vertigo symptoms and be sure tp brace your self upon standing and walking upstairs. We are also sending you home with a medication for nausea called Zofran. Pending Studies at Discharge: No Stand-Alone Forms: My [facility] [employer], Work/School Release (Inpt), Smoking Cessation Medications and DC Order Prescriptions: New ondansetron HCl [Zofran] 4 mg tablet 4 mg PO Q6H PRN (Reason: nausea and vomiting) Qty: 14 RF: 0 meclizine 25 mg tablet 25 mg PO QID PRN (Reason: vertigo) 14 Days Qty: 30 RF: 0 Continued omega-3 fatty acids [Fish Oil Concentrate] 1,000 mg capsule 1,000 mg PO DAILY RF: 0 levothyroxine 125 mcg tablet 125 mcg PO DAILY RF: 0 lisinopril 2.5 mg tablet 2.5 mg PO DAILY RF: 0 rosuvastatin [Crestor] 10 mg tablet 10 mg PO QPM RF: 0 Discharge Orders: Discharge Order (Routine); Ordered 04/22/19 Ordered By: Jose Wong Admission Data Admit Date/Time: 04/21/19 21:34 Attending Provider: Ale Jovel Admit Provider: Philippe Nevarez Primary Care Provider: Gabriel Rodriguez Other Providers: Alfonso Keller Other Interventions: Discharge Summary Assessment (RN) Last Done: 04/22/19 16:06 DC Date/Time DO NOT enter until pt leaves facility: 04/22/19 16:28 Supervising Physician Co-Signing Physician Notes Patient seen and examined with PGY-3 Dr. Dennys Wong. Agree with history, exam findings, assessment and plan of care as outlined above. In brief, Mr. Brown is a 64 year old female with history of HLD, HTN, ahd hypothyroidism admitted with dizziness and new heart murmur. Noted recent upper respiratory symptoms. Negative [place]. Dizziness improved with supine position, worse with upright position. CT head unremarkable. MRI Brain unremarkable. TTE without valvular abnormality, EF preserved and normal wall motion. EKG with RBBB and flat troponins. Possible labyrinthitis from recent URI. Continue meclizine at home. SHANNAN on admission resolved with IVFs. Dispo: discharge home today. Follow up with PCP in the next week. I personally spent 35 minutes discharge planning for this patient. Resident Activity Tracking Resident Involvement: Resident Care Provided Care Provided: Adult Hospital Medicine
--- NOTE | 2019-04-22 16:58 | Electrocardiogram Report ---
Test Reason : Blood Pressure : / mmHG Vent. Rate : 061 BPM Atrial Rate : 061 BPM P-R Int : 168 ms QRS Dur : 132 ms QT Int : 450 ms P-R-T Axes : -29 144 135 degrees QTc Int : 453 ms Normal sinus rhythm Right bundle branch block Lateral infarct , age undetermined Low voltage QRS Abnormal ECG When compared with ECG of 21-APR-2019 15:23, QRS axis Shifted right Lateral infarct is now Present Confirmed by Dave Ortega ([id number]) on 04/22/2019 4:57:53 PM Referred By: REFERRED SELF Confirmed By:Dave Ortega
[2019-04-22] MEDS ORDERED: ROSUVASTATIN CALCIUM 10 MG TAB PO SCH (21:00)
--- NOTE | 2019-04-23 21:35 | Electrocardiogram Report ---
Test Reason : Blood Pressure : / mmHG Vent. Rate : 060 BPM Atrial Rate : 060 BPM P-R Int : 168 ms QRS Dur : 132 ms QT Int : 442 ms P-R-T Axes : 014 066 031 degrees QTc Int : 442 ms Normal sinus rhythm Right bundle branch block Abnormal ECG When compared with ECG of 21-APR-2019 16:22, QRS axis Shifted left Criteria for Lateral infarct are no longer Present Nonspecific T wave abnormality, improved in Inferior leads Nonspecific T wave abnormality no longer evident in Lateral leads Confirmed by Dave Ortega ([id number]) on 04/23/2019 9:35:45 PM Referred By: REFERRED SELF Confirmed By:Dave Ortega
== END 2019-04-22 16:28 | disposition home or self-care (01) ==
LOC: ED 14:15 → 4W 14:15 → SUATTDRO 21:34 → 4W 22:41